=== PATIENT | female | born 1935 | race Caucasian/White ===

== ENCOUNTER 2016-08-27 11:26 | Emergency (ER) | payer MEDICARE, OTHER ==
[2016-08-27] MEDS ORDERED: Sodium Chloride 0.9% 10 ML Syringe FLUSH PRN (11:39)
[2016-08-27] MEDS ORDERED: Sodium Chloride 0.9% 1,000 ML IV SCH (11:45)
[2016-08-27 12:35] LABS: CHLORIDE,CL 98 mmol/L (98-107); SODIUM,NA 134 mmol/L (136-145)
--- NOTE | 2016-08-27 12:44 | EDM.PDOC ---
ED HISTORY OF PRESENT ILLNESS - General Chief Complaint: Respiratory Problem Stated Complaint: Productive cough Time Seen by Provider: 08/27/16 11:32 Source of Information: Reports: Patient, Family, RN, RN notes reviewed History Limitations: Reports: No limitations - History of Present Illness INITIAL COMMENTS - FREE TEXT/NARRATIVE: Patient presents to the ED at [facility] with a 3 day history of a productive cough. Patient state she is coughing up green/yellow appearing purulent sputum. No other URI symptoms. Patient states she had had some chills over the past couple of days. Symptom Onset Date: 08/24/16 Timing/Duration: Reports: Getting worse - Related Data Allergies/ADRs: Allergies Allergy/AdvReac Type Severity Reaction Status Date / Time No Known Allergies Allergy Verified 03/18/14 11:26 Home Meds: Home Meds Aspirin [[place] Aspirin] 1 tab PO DAILY 02/25/14 [History] Levothyroxine 1 tab PO DAILY 02/25/14 [History] Lisinopril [Prinivil] 1 tab PO DAILY 02/25/14 [History] diphenhydrAMINE HCl [Benadryl] 1 tab PO ASDIRECTED PRN 02/25/14 [History] Optic-Vites 1 tab PO Q7D 03/11/14 [History] Nitrofurantoin Macrocrystal [Macrodantin] 100 mg PO BID #12 capsule 08/27/16 [Rx ] Social & Family History - Tobacco Use Smoking Status *Q: Never Smoker - Alcohol Use Days Per Week of Alcohol Use: 0 - Recreational Drug Use Recreational Drug Use: No ED ROS GENERAL - Review of Systems Review Of Systems: See Below Constitutional: Reports: fever, chills, weakness HEENT: Denies: Rhinitis, Sinus problem, Throat pain Respiratory: Reports: Cough, Sputum. Denies: Shortness of Breath, Wheezing Cardiovascular: Denies: Chest pain, Palpitations Skin: Reports: no symptoms Neurological: Denies: Dizziness, Headache ED EXAM, GENERAL - Physical Exam Exam: See Below Exam Limited By: No limitations General Appearance: alert, no apparent distress Eye Exam: bilateral eye: EOMI, normal inspection, PERRL Ears: normal external exam, normal canal, hearing grossly normal, normal TMs Ear Exam: bilateral ear: TM normal Nose: normal inspection, normal mucosa Throat/Mouth: Normal inspection, Normal oropharynx Neck: supple Respiratory/Chest: no respiratory distress, rhonchi Cardiovascular: regular rate, rhythm Neurological: alert, oriented Skin Exam: Warm, Dry, Intact, Normal color, No rash Course - Vital Signs Last Recorded V/S: Last Vital Signs Temp 38.5 C H 08/27/16 11:33 Pulse 107 H 08/27/16 11:33 Resp 18 08/27/16 11:33 BP 146/82 H 08/27/16 11:33 Pulse Ox 92 L 08/27/16 11:33 - Orders/Labs/Meds Orders: Active Orders 24 hr Category Date Time Status Chest 2V [CR] Stat Exams 08/27/16 11:37 Taken CULTURE BLOOD [BC] Stat Lab 08/27/16 12:02 Received CULTURE BLOOD [BC] Stat Lab 08/27/16 12:09 Received Nitrofurantoin Hawkins/Macrocryst [Take Home: Nitrofur Med 08/27/16 13:45 Once Hawkins/Ma 100 MG, 2 Pack] 1 packet PO ONETIME ONE Sodium Chloride 0.9% [Normal Saline] 1,000 ml Med 08/27/16 11:45 Active IV ASDIRECTED Sodium Chloride 0.9% [Saline Flush] Med 08/27/16 11:39 Active 10 ml FLUSH ASDIRECTED PRN Blood Culture x2 Reflex Set [OM.PC] Stat Oth 08/27/16 11:38 Ordered Peripheral IV Insertion Adult [OM.PC] Routine Oth 08/27/16 11:39 Ordered Medication Orders Sodium Chloride (Normal Saline) 1,000 mls @ 30 mls/hr IV ASDIRECTED [facility] Last Admin: 08/27/16 12:36 Dose: 30 mls/hr Sodium Chloride (Saline Flush) 10 ml FLUSH ASDIRECTED PRN PRN Reason: Keep Vein Open Labs: Laboratory Tests 08/27/16 08/27/16 08/27/16 Range/Units 12:02 12:02 12:02 WBC 6.8 (4.0-10.0) x10^3/uL RBC 4.69 (4.00-5.50) x10^6/uL Hgb 14.2 (12.0-16.0) g/dL Hct 41.8 (33.0-47.0) % MCV 89.1 (78.0-93.0) fL MCH 30.3 (26.0-32.0) pg MCHC 34.0 (32.0-36.0) g/dL RDW Coeff of Kam 14.5 (10.0-15.0) % Plt Count 171 (130-400) x10^3/uL Neut % (Auto) 76.1 (50.0-80.0) % Lymph % (Auto) 12.2 L (25.0-50.0) % Hawkins % (Auto) 11.6 H (2.0-11.0) % Eos % (Auto) 0.0 (0.0-4.0) % Baso % (Auto) 0.1 L (0.2-1.2) % Sodium 134 L (136-145) mmol/L Potassium 3.9 (3.5-5.1) mmol/L Chloride 98 (98-107) mmol/L Carbon Dioxide 26 (21-32) mmol/L BUN 23 H (7-18) mg/dL Creatinine 1.0 (0.55-1.02) mg/dL Est Cr Clr Drug Dosing TNP Estimated GFR (MDRD) 53 Glucose 112 H (74-106) mg/dL Lactic Acid 1.2 (0.4-2.0) mmol/L Calcium 8.2 L (8.5-10.1) mg/dL Corrected Calcium 8.38 L (8.5-10.1) mg/dL Total Bilirubin 0.6 (0.2-1.0) mg/dL AST 40 H (15-37) U/L ALT 30 (14-59) U/L Alkaline Phosphatase 70 (46-116) U/L C-Reactive Protein 5.8 H (<=0.9) mg/dL Total Protein 6.9 (6.4-8.2) g/dL Albumin 3.4 (3.4-5.0) g/dL Globulin 3.5 Albumin/Globulin Ratio 0.97 Urine Color (YELLOW) Urine Appearance (CLEAR) Urine pH (5.0-8.0) Ur Specific [place] Urine Protein (NEGATIVE) mg/dL Urine Glucose (UA) (NEGATIVE) mg/dL Urine Ketones (NEGATIVE) mg/dL Urine Occult Blood (NEGATIVE) Urine Nitrite (NEGATIVE) Urine Bilirubin (NEGATIVE) Urine Urobilinogen (0.2) EU/dL Ur Leukocyte Esterase (NEGATIVE) Urine RBC (NOT SEEN) /HPF Urine WBC (NOT SEEN) /HPF Ur Squamous Epith Cells (NEGATIVE) /HPF Ur Renal Epithelial Cell (NEGATIVE) /HPF Amorphous Sediment Urine Bacteria (NEGATIVE) /HPF Hyaline Casts (NEGATIVE) /HPF Urine Mucus (NEGATIVE) /LPF 08/27/16 Range/Units 13:25 WBC (4.0-10.0) x10^3/uL RBC (4.00-5.50) x10^6/uL Hgb (12.0-16.0) g/dL Hct (33.0-47.0) % MCV (78.0-93.0) fL MCH (26.0-32.0) pg MCHC (32.0-36.0) g/dL RDW Coeff of Kam (10.0-15.0) % Plt Count (130-400) x10^3/uL Neut % (Auto) (50.0-80.0) % Lymph % (Auto) (25.0-50.0) % Hawkins % (Auto) (2.0-11.0) % Eos % (Auto) (0.0-4.0) % Baso % (Auto) (0.2-1.2) % Sodium (136-145) mmol/L Potassium (3.5-5.1) mmol/L Chloride (98-107) mmol/L Carbon Dioxide (21-32) mmol/L BUN (7-18) mg/dL Creatinine (0.55-1.02) mg/dL Est Cr Clr Drug Dosing Estimated GFR (MDRD) Glucose (74-106) mg/dL Lactic Acid (0.4-2.0) mmol/L Calcium (8.5-10.1) mg/dL Corrected Calcium (8.5-10.1) mg/dL Total Bilirubin (0.2-1.0) mg/dL AST (15-37) U/L ALT (14-59) U/L Alkaline Phosphatase (46-116) U/L C-Reactive Protein (<=0.9) mg/dL Total Protein (6.4-8.2) g/dL Albumin (3.4-5.0) g/dL Globulin Albumin/Globulin Ratio Urine Color Yellow (YELLOW) Urine Appearance Turbid H (CLEAR) Urine pH 5.5 (5.0-8.0) Ur Specific [place] 1.020 Urine Protein 100 H (NEGATIVE) mg/dL Urine Glucose (UA) Negative (NEGATIVE) mg/dL Urine Ketones Trace H (NEGATIVE) mg/dL Urine Occult Blood Moderate H (NEGATIVE) Urine Nitrite Positive H (NEGATIVE) Urine Bilirubin Negative (NEGATIVE) Urine Urobilinogen 0.2 (0.2) EU/dL Ur Leukocyte Esterase Small H (NEGATIVE) Urine RBC 0-5 (NOT SEEN) /HPF Urine WBC 10-20 H (NOT SEEN) /HPF Ur Squamous Epith Cells Moderate H (NEGATIVE) /HPF Ur Renal Epithelial Cell Occasional H (NEGATIVE) /HPF Amorphous Sediment Few Urine Bacteria Many H (NEGATIVE) /HPF Hyaline Casts Few H (NEGATIVE) /HPF Urine Mucus Few H (NEGATIVE) /LPF Meds: Medications Generic Name Dose Route Start Last Admin Trade Name Freq PRN Reason Stop Dose Admin Sodium Chloride 1,000 mls @ 30 mls/hr 08/27/16 11:45 08/27/16 12:36 Normal Saline IV 30 mls/hr ASDIRECTED ROQUE Administration Sodium Chloride 10 ml 08/27/16 11:39 Saline Flush FLUSH ASDIRECTED PRN Keep Vein Open Departure - Departure Time of Disposition: 13:42 Disposition: Home, Self-Care 01 Condition: good Clinical Impression: Urinary tract infection Qualifiers: Urinary tract infection type: acute cystitis Hematuria presence: with hematuria Qualified Code(s): N30.01 - Acute cystitis with hematuria Prescriptions: Nitrofurantoin Macrocrystal [Macrodantin] 100 mg PO BID #12 capsule Instructions: Urinary Tract Infection, Adult Referrals: Evie Burgos DO [Primary Care Provider] - Forms: ED Department Discharge Additional Instructions: 1. Stay well hydrated and rest 2. Take medication for the full coarse, even if you are feeling better 3. See your Primary as symptoms warrant - Problem List Review Problem List Initiated/Reviewed/Updated: Yes - My Orders Last 24 Hours: My Active Orders 08/27/16 11:37 Chest 2V [CR] Stat 08/27/16 11:38 Blood Culture x2 Reflex Set [OM.PC] Stat 08/27/16 11:39 Sodium Chloride 0.9% [Saline Flush] 10 ml FLUSH ASDIRECTED PRN Peripheral IV Insertion Adult [OM.PC] Routine 08/27/16 11:45 Sodium Chloride 0.9% [Normal Saline] 1,000 ml IV ASDIRECTED 08/27/16 12:02 CULTURE BLOOD [BC] Stat 08/27/16 12:09 CULTURE BLOOD [BC] Stat 08/27/16 13:45 Nitrofurantoin Hawkins/Macrocryst [Take Home: Nitrofur Hawkins/Ma 100 MG, 2 Pack] 1 packet PO ONETIME ONE - Assessment/Plan Last 24 Hours: My Active Orders 08/27/16 11:37 Chest 2V [CR] Stat 08/27/16 11:38 Blood Culture x2 Reflex Set [OM.PC] Stat 08/27/16 11:39 Sodium Chloride 0.9% [Saline Flush] 10 ml FLUSH ASDIRECTED PRN Peripheral IV Insertion Adult [OM.PC] Routine 08/27/16 11:45 Sodium Chloride 0.9% [Normal Saline] 1,000 ml IV ASDIRECTED 08/27/16 12:02 CULTURE BLOOD [BC] Stat 08/27/16 12:09 CULTURE BLOOD [BC] Stat 08/27/16 13:45 Nitrofurantoin Hawkins/Macrocryst [Take Home: Nitrofur Hawkins/Ma 100 MG, 2 Pack] 1 packet PO ONETIME ONE
[2016-08-27] MEDS ORDERED: Take Home: Nitrofurantoin Monohydrate/Macrocrystalline 100 MG, 2 Cap Pack PO ONE (13:45)
[2016-08-27 14:26] VITALS: BP 138/78
== END 2016-08-27 14:10 | disposition home or self-care (01) ==
LOC: VM.ED 11:26
DX: N30.01 Acute cystitis with hematuria (principal); Z79.82 Long term (current) use of aspirin; Z79.899 Other long term (current) drug therapy
CPT/HCPCS: 36415; 71020; 80053; 81001; 83605; 85025; 86140; 87040; 96360; 99284; A9270; J7030; 99283-GF

== ENCOUNTER 2016-08-31 19:56 | Inpatient (IN) | payer MEDICARE, OTHER ==
--- NOTE | 2016-08-31 20:10 | EDM.PDOC ---
ED HPI GENERAL MEDICAL PROBLEM - General Chief Complaint: General Stated Complaint: not improving, has UTI and Bronchitis Time Seen by Provider: 08/31/16 19:59 Source of Information: Reports: Patient, Family, RN, RN notes reviewed History Limitations: Reports: No limitations - History of Present Illness INITIAL COMMENTS - FREE TEXT/NARRATIVE: Patient presents to the emergency room at [facility] with increasing shortness of breath, increasing weakness, productive cough. The patient was seen by me in this ER 4 days ago, at which time she was diagnosed with a UTI. The patient was placed on Macrobid and discharged. The patient was seen the next day at the [facility] in [place]. The patient was diagnosed with acute bronchitis do to productive cough. M.D. provider at that time recommended she continue with the current antibiotics and she was also placed on codeine with guaifenesin. Since the patient's office visit last Sunday she has progressively gotten worse with her productive cough, new onset of weakness, decreased appetite, and shortness of breath. No focal neurological deficits. The patient denies any nausea vomiting or diarrhea. The patient has been taking her antibiotics as prescribed for her UTI. Onset Date: 08/28/16 Duration: Getting worse - Related Data Allergies Allergy/AdvReac Type Severity Reaction Status Date / Time No Known Allergies Allergy Verified 08/31/16 20:05 Home Meds: Home Meds Aspirin [[place] Aspirin] 1 tab PO DAILY 02/25/14 [History] Levothyroxine 1 tab PO DAILY 02/25/14 [History] Lisinopril [Prinivil] 1 tab PO DAILY 02/25/14 [History] Latanoprost [Xalatan 0.005% Ophth Soln] 2.5 ml EYERT BEDTIME 08/31/16 [History] Nitrofurantoin Macrocrystal [Macrodantin] 100 mg PO BID 08/31/16 [History] guaiFENesin/Codeine Phosphate [Guaifenesin AC Cough Syrup] 1 - 2 tsp PO Q4HR PRN 08/31/16 [History] Past Medical History Cardiovascular History: Reports: Hypertension Endocrine/Metabolic History: Reports: Hypothyroidism Social & Family History - Tobacco Use Smoking Status *Q: Never Smoker - Alcohol Use Days Per Week of Alcohol Use: 0 - Recreational Drug Use Recreational Drug Use: No ED ROS GENERAL - Review of Systems Review Of Systems: See Below Constitutional: Reports: fever, chills, weakness, decreased appetite HEENT: Reports: No symptoms Respiratory: Reports: Shortness of Breath, Cough, Sputum Cardiovascular: Denies: Chest pain, Palpitations GI/Abdominal: Denies: Abdominal pain, Nausea, Vomiting Skin: Reports: no symptoms Neurological: Reports: Dizziness. Denies: Headache, Numbness, Paresthesia, Tingling ED EXAM, GENERAL - Physical Exam Exam: See Below Exam Limited By: No limitations General Appearance: alert, no apparent distress, lethargic, cachetic Eye Exam: bilateral eye: EOMI, normal inspection, PERRL Ears: normal external exam, normal canal, hearing grossly normal, normal TMs Ear Exam: bilateral ear: TM normal Nose: normal inspection, normal mucosa Throat/Mouth: Normal inspection, Normal oropharynx, No airway compromise Neck: supple Respiratory/Chest: decreased breath sounds, rhonchi, accessory muscle use Cardiovascular: regular rate, rhythm Peripheral Pulses: 1+: radial (L), radial (R) GI/Abdominal: normal bowel sounds, soft, non tender Neurological: alert, slow to respond Skin Exam: Warm, Dry, Intact, Normal color, No rash Course - Vital Signs Last Recorded V/S: Last Vital Signs Temp 37.1 C 08/31/16 20:02 Pulse 103 H 08/31/16 20:02 Resp 18 08/31/16 20:02 BP 166/92 H 08/31/16 20:02 Pulse Ox 87 L 08/31/16 20:02 - Orders/Labs/Meds Orders: Active Orders 24 hr Category Date Time Status Admission Status [Patient Status] [ADT] Routine ADT 08/31/16 21:27 Ordered Oxygen Therapy, ED [RC] ASDIRECTED Care 08/31/16 20:46 Active Chest 2V [CR] Stat Exams 08/31/16 20:10 Taken Chest w Cont [CT] Stat Exams 08/31/16 21:16 Ordered CULTURE BLOOD [BC] Stat Lab 08/31/16 21:18 Ordered CULTURE BLOOD [BC] Stat Lab 08/31/16 21:18 Ordered INFLUENZA A+B AG SCREEN [RM] Stat Lab 08/31/16 21:18 Uncollected UA W/MICROSCOPIC [URIN] Stat Lab 08/31/16 20:10 Uncollected Sodium Chloride 0.9% [Normal Saline] 1,000 ml Med 08/31/16 20:15 Active IV ASDIRECTED Sodium Chloride 0.9% [Saline Flush] Med 08/31/16 20:11 Active 10 ml FLUSH ASDIRECTED PRN Blood Culture x2 Reflex Set [OM.PC] Stat Oth 08/31/16 21:18 Ordered Peripheral IV Insertion Adult [OM.PC] Routine Oth 08/31/16 20:11 Ordered Medication Orders Sodium Chloride (Normal Saline) 1,000 mls @ 999 mls/hr IV ASDIRECTED ROQUE Last Admin: 08/31/16 21:15 Dose: 999 mls/hr Sodium Chloride (Saline Flush) 10 ml FLUSH ASDIRECTED PRN PRN Reason: Keep Vein Open Labs: Laboratory Tests 08/31/16 08/31/16 08/31/16 Range/Units 20:26 20:26 20:26 WBC 6.2 (4.0-10.0) x10^3/uL RBC 4.66 (4.00-5.50) x10^6/uL Hgb 14.0 (12.0-16.0) g/dL Hct 40.7 (33.0-47.0) % MCV 87.3 (78.0-93.0) fL MCH 30.0 (26.0-32.0) pg MCHC 34.4 (32.0-36.0) g/dL RDW Coeff of Kam 13.7 (10.0-15.0) % Plt Count 258 (130-400) x10^3/uL Neut % (Auto) 71.8 (50.0-80.0) % Lymph % (Auto) 13.2 L (25.0-50.0) % [place] % (Auto) 15.0 H (2.0-11.0) % Eos % (Auto) 0.0 (0.0-4.0) % Baso % (Auto) 0.0 L (0.2-1.2) % D-Dimer, Quantitative (<=0.58) mg/LFEU POC ABG pH (7.35-7.45) POC ABG pCO2 (35-45) mmHG POC ABG pO2 (80-105) mmHG POC ABG HCO3 (22-26) mmol/L POC ABG Total CO2 (23-27) mmol/L POC ABG O2 Sat (95-98) % POC ABG Base Excess (-2-3) mmol/L POC FiO2 Sodium 128 L* (136-145) mmol/L Potassium 3.1 L (3.5-5.1) mmol/L Chloride 92 L (98-107) mmol/L Carbon Dioxide 28 (21-32) mmol/L BUN 7 (7-18) mg/dL Creatinine 0.8 (0.55-1.02) mg/dL Est Cr Clr Drug Dosing TNP Estimated GFR (MDRD) > 60 Glucose 183 H (74-106) mg/dL Lactic Acid 1.3 (0.4-2.0) mmol/L Calcium 8.1 L (8.5-10.1) mg/dL C-Reactive Protein 26.5 H (<=0.9) mg/dL POC Result Comm 08/31/16 08/31/16 Range/Units 20:26 20:37 WBC (4.0-10.0) x10^3/uL RBC (4.00-5.50) x10^6/uL Hgb (12.0-16.0) g/dL Hct (33.0-47.0) % MCV (78.0-93.0) fL MCH (26.0-32.0) pg MCHC (32.0-36.0) g/dL RDW Coeff of Kam (10.0-15.0) % Plt Count (130-400) x10^3/uL Neut % (Auto) (50.0-80.0) % Lymph % (Auto) (25.0-50.0) % [place] % (Auto) (2.0-11.0) % Eos % (Auto) (0.0-4.0) % Baso % (Auto) (0.2-1.2) % D-Dimer, Quantitative 3.45 H (<=0.58) mg/LFEU POC ABG pH 7.512 H (7.35-7.45) POC ABG pCO2 30 L (35-45) mmHG POC ABG pO2 50 L* (80-105) mmHG POC ABG HCO3 24 (22-26) mmol/L POC ABG Total CO2 25 (23-27) mmol/L POC ABG O2 Sat 89 L (95-98) % POC ABG Base Excess 1 (-2-3) mmol/L POC FiO2 0.21 Sodium (136-145) mmol/L Potassium (3.5-5.1) mmol/L Chloride (98-107) mmol/L Carbon Dioxide (21-32) mmol/L BUN (7-18) mg/dL Creatinine (0.55-1.02) mg/dL Est Cr Clr Drug Dosing Estimated GFR (MDRD) Glucose (74-106) mg/dL Lactic Acid (0.4-2.0) mmol/L Calcium (8.5-10.1) mg/dL C-Reactive Protein (<=0.9) mg/dL POC Result Comm Called critical res Meds: Medications Generic Name Dose Route Start Last Admin Trade Name Freq PRN Reason Stop Dose Admin Sodium Chloride 1,000 mls @ 999 mls/hr 08/31/16 20:15 08/31/16 21:15 Normal Saline IV 999 mls/hr ASDIRECTED ROQUE Administration Sodium Chloride 10 ml 08/31/16 20:11 Saline Flush FLUSH ASDIRECTED PRN Keep Vein Open Discontinued Medications Generic Name Dose Route Start Last Admin Trade Name Freq PRN Reason Stop Dose Admin Ceftriaxone Sodium 1 gm 08/31/16 21:19 Rocephin IVPUSH 08/31/16 21:20 ONETIME ONE - Radiology Interpretation Free Text/Narrative:: CXR: New bilateral infiltrates; heart size is normal; no vascular congestion Departure - Departure Time of Disposition: 21:25 Disposition: Admitted As Inpatient 66 Condition: fair Clinical Impression: Pulmonary infiltrates, Hyponatremia, Weakness, Hypoxia ED Communication - ED Communication Date/Time Date: 08/31/16 Time Called: 21:20 - Discussed Case With (1) Discussed Case With (1): Admitting Provider Person/s Notified (1): Cristy Tipton - Conversation Summary Admitting Provider Agreed to Patient's Admission: Yes Summary Comment: Admit acute - Problem List Review Problem List Initiated/Reviewed/Updated: Yes - My Orders Last 24 Hours: My Active Orders 08/31/16 20:10 Chest 2V [CR] Stat UA W/MICROSCOPIC [URIN] Stat 08/31/16 20:11 Sodium Chloride 0.9% [Saline Flush] 10 ml FLUSH ASDIRECTED PRN Peripheral IV Insertion Adult [OM.PC] Routine 08/31/16 20:15 Sodium Chloride 0.9% [Normal Saline] 1,000 ml IV ASDIRECTED 08/31/16 20:46 Oxygen Therapy, ED [RC] ASDIRECTED 08/31/16 21:16 Chest w Cont [CT] Stat 08/31/16 21:18 CULTURE BLOOD [BC] Stat CULTURE BLOOD [BC] Stat INFLUENZA A+B AG SCREEN [RM] Stat Blood Culture x2 Reflex Set [OM.PC] Stat 08/31/16 21:27 Admission Status [Patient Status] [ADT] Routine - Assessment/Plan Last 24 Hours: My Active Orders 08/31/16 20:10 Chest 2V [CR] Stat UA W/MICROSCOPIC [URIN] Stat 08/31/16 20:11 Sodium Chloride 0.9% [Saline Flush] 10 ml FLUSH ASDIRECTED PRN Peripheral IV Insertion Adult [OM.PC] Routine 08/31/16 20:15 Sodium Chloride 0.9% [Normal Saline] 1,000 ml IV ASDIRECTED 08/31/16 20:46 Oxygen Therapy, ED [RC] ASDIRECTED 08/31/16 21:16 Chest w Cont [CT] Stat 08/31/16 21:18 CULTURE BLOOD [BC] Stat CULTURE BLOOD [BC] Stat INFLUENZA A+B AG SCREEN [RM] Stat Blood Culture x2 Reflex Set [OM.PC] Stat 08/31/16 21:27 Admission Status [Patient Status] [ADT] Routine
[2016-08-31] MEDS ORDERED: Sodium Chloride 0.9% 10 ML Syringe FLUSH PRN (20:11)
[2016-08-31] MEDS ORDERED: Sodium Chloride 0.9% 1,000 ML IV SCH (20:15)
[2016-08-31 21:02] LABS: CHLORIDE,CL 92 mmol/L (98-107)
[2016-08-31 21:04] LABS: SODIUM,NA 128 mmol/L (136-145)
[2016-08-31] MEDS ORDERED: cefTRIAXone 1 GM Vial IVPUSH ONE (21:19)
--- NOTE | 2016-08-31 21:54 | PCM.HP ---
H&P History of Present Illness - General Date of Service: 08/31/16 Admit Problem/Dx: Admission Diagnosis/Problem Admission Diagnosis/Problem Interstitial pneumonia Source of Information: Patient History Limitations: Reports: No limitations - History of Present Illness Initial Comments - Free Text/Narative: Mrs. Ware is an 80 yo female with PMH of hypertension, hypothyroidism, and osteoarthritis who presented to the ED for evaluation of worsening cough and generalized weakness over the past 7 days. She was seen in the ED 5 days ago and was diagnosed with a UTI. She was placed on macrobid. The following day, she was seen in clinic for evaluation of the cough. Since her chest x-ray in the ED the day before was negative, it was recommended she continue with symptomatic cares. However, her cough has continued to progress. Her appetite has also been poor due to altered taste related to her antibiotics for the UTI. She has had intermittent subjective fever and chills throughout the week as well. She never had much in the way of URI symptoms. She has had no chest pain or shortness of breath. She denies any myalgias or sore throat. She has had sick contacts through her work at the [employer]. She has taken OTC medications and prescription cough syrup without relief in symptoms. - Related Data Allergies/Adverse Reactions: Allergies Allergy/AdvReac Type Severity Reaction Status Date / Time No Known Allergies Allergy Verified 08/31/16 20:05 Home Medications: Home Meds Aspirin [[place] Aspirin] 1 tab PO DAILY 02/25/14 [History] Levothyroxine 1 tab PO DAILY 02/25/14 [History] Lisinopril [Prinivil] 1 tab PO DAILY 02/25/14 [History] Latanoprost [Xalatan 0.005% Ophth Soln] 2.5 ml EYERT BEDTIME 08/31/16 [History] Nitrofurantoin Macrocrystal [Macrodantin] 100 mg PO BID 08/31/16 [History] guaiFENesin/Codeine Phosphate [Guaifenesin AC Cough Syrup] 1 - 2 tsp PO Q4HR PRN 08/31/16 [History] Past Medical History HEENT History: Reports: Cataract, Glaucoma Cardiovascular History: Reports: Hypertension Respiratory History: Reports: None Gastrointestinal History: Reports: Colon polyp Genitourinary History: Reports: None Musculoskeletal History: Reports: Osteoarthritis Neurological History: Reports: None Psychiatric History: Reports: None Endocrine/Metabolic History: Reports: Hypothyroidism Hematologic History: Reports: None Immunologic History: Reports: None Oncologic (Cancer) History: Reports: None Dermatologic History: Reports: None - Infectious Disease History Infectious Disease History: Reports: None - Past Surgical History HEENT Surgical History: Reports: Oral surgery Female Surgical History: Reports: Hysterectomy Social & Family History - Family History Cardiac: Reports: CAD Musculoskeletal: Reports: RA Neurological: Reports: Other (see below) (cerebral hemorrhage) Endocrine/Metabolic: Reports: Diabetes, type II Oncologic: Reports: Breast - Tobacco Use Smoking Status *Q: Never Smoker - Alcohol Use Alcohol Use History: No Days Per Week of Alcohol Use: 0 Alcohol Use in Last Twelve Months: Yes Alcohol Use Frequency: Rarely - Recreational Drug Use Recreational Drug Use: No - Living Situation & Occupation Living situation: Reports: , alone Occupation: employed (works at the [employer]) H&P Review of Systems - Review of Systems: Review Of Systems: See Below General: Reports: fever, chills, malaise, weakness, decreased appetite HEENT: Reports: no symptoms Pulmonary: Reports: Cough. Denies: Shortness of Breath, Wheezing, Pleuritic Chest Pain Cardiovascular: Reports: no symptoms Gastrointestinal: Reports: Anorexia. Denies: Abdominal pain, Diarrhea, Nausea, Vomiting Genitourinary: Reports: no symptoms Musculoskeletal: Reports: no symptoms Skin: Reports: no symptoms Psychiatric: Reports: no symptoms Neurological: Reports: No Symptoms Exam - Exam Exam: See Below - Vital Signs Vital Signs: Last Vital Signs Temp 37.1 C 08/31/16 20:02 Pulse 103 H 08/31/16 20:02 Resp 18 08/31/16 20:02 BP 166/92 H 08/31/16 20:02 Pulse Ox 87 L 08/31/16 20:02 - Exam General: alert, cooperative. No: mild distress, moderate distress, severe distress HEENT: Conjunctiva clear, Mucosa moist & pink, Posterior pharynx clear, Pupils equal, Pupils reactive Neck: supple, trachea midline. No: lymphadenopathy, thyromegaly Lungs: Normal respiratory effort, Crackles (diffuse and bilateral), Rhonchi ( diffuse and bilateral) Cardiovascular: regular rate, regular rhythm, normal S1, normal S2. No: systolic murmur, diastolic murmur Abdomen: normal bowel sounds, soft. No: distention, tenderness Extremities: normal inspection, normal pulses. No: edema Skin: warm, dry, intact Neurological: cranial nerves intact, normal speech. No: focal deficit - Patient Data Result Diagrams: 08/31/16 20:26 08/31/16 20:26 *Q Meaningful Use (ADM) - VTE *Q VTE Criteria *Q: - Stroke *Q Stroke Criteria *Q: - AMI *Q AMI Criteria *Q: - Problem List (1) Community acquired pneumonia SNOMED Code(s): 580132025 ICD Code: J18.9 - PNEUMONIA, UNSPECIFIED ORGANISM Status: Acute Current Visit: Yes Problem Details: - Symptoms, exam, and CXR findings are all consistent with CAP. Her WBC count is normal but her CRP is significantly elevated. - In the absence of recent antibiotic use or other risk factors, will treat with ceftriaxone and azithromycin. - Patient does not meet sepsis criteria at this point. Therefore, in the setting of her hyponatremia, we will give gentle IV hydration overnight and bolus only as needed for low blood pressures. - Blood cultures are pending. - Oxygen to keep saturations >90%. Will wean as able. (2) Hypoxia SNOMED Code(s): 809866795, 436366503 ICD Code: R09.02 - HYPOXEMIA Status: Acute Current Visit: Yes Problem Details: - Likely secondary to #1. - Differentials considered and excluded include: CHF (no evidence on exam or by CXR), ACS (absolutely no symptoms concerning for this), influenza (swab was negative), and PE (did have an elevated d-dimer but CTA negative). Patient has no history of asthma or COPD. - Will treat pneumonia as above. - Oxygen to keep saturations >90%. Wean as able. (3) Weakness SNOMED Code(s): 95958448 ICD Code: R53.1 - WEAKNESS Status: Acute Current Visit: Yes Problem Details: - Likely secondary to pneumonia and hyponatremia. - Will observe for improvement with treatment and correction of these, respectively. - Depending on how she does, she may need PT/OT consults for possible swing bed stay. (4) Hyponatremia SNOMED Code(s): 11459976 ICD Code: E87.1 - HYPO-OSMOLALITY AND HYPONATREMIA Status: Acute Current Visit: Yes Problem Details: - Presume this is acute based on her history; also , her last sodium on 08/27 was nearly normal at 134. - Likely secondary to pneumonia causing dehydration vs. SIADH. No evidence this is pseudohyponatremia. - She will get gentle IV fluids overnight to complete the liter started in the ED and then we will recheck her labs in the morning. This fluid rate is highly unlikely to overcorrect too quickly. (5) Hypertension SNOMED Code(s): 04440387 ICD Code: I10 - ESSENTIAL (PRIMARY) HYPERTENSION Status: Chronic Current Visit: Yes Problem Details: - BP elevated on admission. - In the absence of symptoms, will not specifically treat this. - Continue lisinopril and aspirin. Qualifiers: Hypertension type: essential hypertension Qualified Code(s): I10 - Essential (primary) hypertension (6) Hypothyroidism SNOMED Code(s): 90448841 ICD Code: E03.9 - HYPOTHYROIDISM, UNSPECIFIED Status: Chronic Current Visit: Yes Problem Details: - Continue levothyroxine. Qualifiers: Hypothyroidism type: acquired Qualified Code(s): E03.9 - Hypothyroidism, unspecified (7) Urinary tract infection SNOMED Code(s): 29844319 ICD Code: N39.0 - URINARY TRACT INFECTION, SITE NOT SPECIFIED Status: Acute Current Visit: No Problem Details: - Patient likely does not need to complete macrobid course as her UTI should be covered with the ceftriaxone used to treat her pneumonia. Qualifiers: Urinary tract infection type: acute cystitis Hematuria presence: with hematuria Qualified Code(s): N30.01 - Acute cystitis with hematuria (8) Glaucoma SNOMED Code(s): 30448977 ICD Code: H40.9 - UNSPECIFIED GLAUCOMA Status: Acute Current Visit: Yes Problem Details: - Continue eye drops. Qualifiers: Glaucoma type: open-angle Open angle glaucoma type: primary Laterality: unspecified laterality Glaucoma stage: stage unspecified Qualified Code(s): H40.1190 - Primary open-angle glaucoma, unspecified eye, stage unspecified Problem List Initiated/Reviewed/Updated: Yes Orders Last 24hrs: Medication Orders Sodium Chloride (Normal Saline) 1,000 mls @ 999 mls/hr IV ASDIRECTED ROQUE Last Admin: 08/31/16 21:15 Dose: 999 mls/hr Sodium Chloride (Saline Flush) 10 ml FLUSH ASDIRECTED PRN PRN Reason: Keep Vein Open Assessment/Plan Comment:: 80 yo female presenting with progressive cough and generalized weakness. Evaluation suggests community acquired pneumonia and hyponatremia as the causes for this. Please see details under problems listed above. She will be treated with ceftriaxone and azithromycin. Gentle IV fluids overnight. Recheck labs in the morning. She will be placed on lovenox for VTE prophylaxis. She will be admitted acute as she will require IV antibiotics, oxygen, and will likely spend at least 2 nights in the hospital. She wishes to be full code.
[2016-08-31] MEDS ORDERED: Iopamidol 612 MG/ML 100 ML Bottle IVPUSH ONE (21:55)
[2016-08-31] MEDS ORDERED: Sodium Chloride 0.9% 100 ML IV ONE (21:55)
[2016-08-31] MEDS ORDERED: Acetaminophen 325 MG Tab PO PRN (22:13)
[2016-08-31] MEDS ORDERED: Azithromycin 250 MG Tab PO SCH (22:45)
[2016-08-31] MEDS: Latanoprost 0.005% Ophth Soln 2.5 ML Bottle EYERT SCH (23:46)
[2016-08-31] MEDS: Timolol Maleate 0.5% Ophth Soln 5 ML Bottle EYERT SCH (23:47)
[2016-09-01] MEDS: Levothyroxine 75 MCG Tab PO SCH (06:14)
[2016-09-01 07:17] LABS: CHLORIDE,CL 99 mmol/L (98-107); SODIUM,NA 134 mmol/L (136-145)
[2016-09-01] MEDS ORDERED: Azithromycin 250 MG Tab PO SCH ×2 (08:00→18:00)
[2016-09-01] MEDS ORDERED: NS + KCl 20mEq/L 1,000 ML IV SCH (08:15)
[2016-09-01] MEDS: Albuterol 0.083% 2.5 MG/3 ML Neb Soln NEB SCH ×3 (08:30→19:47)
[2016-09-01] MEDS ORDERED: Albuterol 0.083% 2.5 MG/3 ML Neb Soln ONE (08:30)
--- NOTE | 2016-09-01 08:45 | PN ---
Progress Note for YOGESH PECK Date: 09/01/2016 Room #: VM.219 SUBJECTIVE: This is hospital day #2 on an 80-year-old admitted last evening with community-acquired pneumonia, worse in the left lower lobe. She has been sick since last week. She came in the ER 6 days ago, was diagnosed with the UTI, placed on Macrobid. She also had a cough, was in the clinic Sunday, diagnosed with bronchitis, but her symptoms continued to worsen throughout the week. She has had fever and chills, persistent cough. She has no history of smoking or asthma. She was mildly hypoxic with sats down to 87% on room air on admission. She was also weak and had a low sodium at 128 on admission. She is otherwise healthy. A she was still working. She sees her doctor, myself about once yearly for hypertension. OBJECTIVE: Vital Signs: She has a temperature of 97.1 this morning. Pulse 89, blood pressure 154/92, respiratory rate 20, O2 of 90 on 2 L. General: She is in no acute distress. Heart: Regular rate and rhythm. S1, S2 without murmur. Lungs: Sounds show diffuse rhonchi throughout with more rhonchi noted in the left lower lobe. She has wheezing, fine expiratory noted. Mental Status: She is alert. Her eyes do have some green discharge noted. She is concerned about not having her eye drops yet this morning. LABORATORY DATA: Lab work did show her sodium improved to 134, potassium still low at 3.1, chloride 99, bicarb 26, BUN 7, creatinine 0.7, glucose 139. Her lactate was normal, magnesium 1.7. UA was normal. PO2 was 50. White count was 7.6, but she had 31% band neutrophils today, hemoglobin 12.7, platelets 264. ASSESSMENT: 1. Community-acquired pneumonia to the left lower lobe. Blood cultures are pending. Sputum cultures have been ordered. We will continue her Rocephin IV and include Zithromax, but I will increase it up to the 500 mg daily for 5 days. 2. Acute hypoxic respiratory failure secondary to community-acquired pneumonia. We will continue oxygen and wean as able. 3. Generalized weakness. We will get her up and working with PT. 4. Hyponatremia due to pneumonia and dehydration, improving. 5. Hypothyroidism, on replacement. 6. Urinary tract infection, treated with Macrobid. 7. Glaucoma. We will work on getting her eye drops and giving them to her today. 8. Hypokalemia and hypomagnesemia. We will replace IV and orally. Repeat tomorrow for the potassium. PLAN: At this point, the patient will continue IV fluids, normal saline with 20 of KCl. We will continue IV Rocephin and oral Zithromax. I will continue oxygen. We will start nebulizers and Mucinex to see if it helps with her cough. If she is having difficulty with sleeping, we will consider even codeine cough syrup. For DVT prophylaxis, she is on Lovenox. MKA: 09/01/2016 08:20:45 MODL: 09/01/2016 08:34:24 /[id number]
[2016-09-01] MEDS: Lisinopril 10 MG Tab PO SCH (08:54)
[2016-09-01] MEDS: Aspirin 81 MG Tab.EC PO SCH (08:54)
[2016-09-01] MEDS: Enoxaparin 40 MG/0.4 ML Syringe SUBCUT SCH (08:55)
[2016-09-01] MEDS: guaiFENesin 600 MG Tab.ER PO SCH ×2 (09:11→19:41)
[2016-09-01] MEDS: Potassium Chloride 10 MEQ Tab.ER PO SCH ×2 (09:11→17:16)
[2016-09-01] MEDS: Magnesium Oxide 400 MG Tab PO SCH ×2 (09:11→19:41)
[2016-09-01] MEDS: Timolol Maleate 0.5% Ophth Soln 5 ML Bottle EYERT SCH ×2 (09:57→19:42)
[2016-09-01] MEDS: Azithromycin 250 MG Tab PO SCH (17:17)
[2016-09-01] MEDS: Latanoprost 0.005% Ophth Soln 2.5 ML Bottle EYERT SCH (19:47)
[2016-09-01] MEDS: cefTRIAXone 1 GM Vial IVPUSH SCH (20:08)
[2016-09-02] MEDS: Levothyroxine 75 MCG Tab PO SCH (07:13)
[2016-09-02] MEDS: Albuterol 0.083% 2.5 MG/3 ML Neb Soln NEB SCH ×3 (07:21→21:19)
[2016-09-02 08:32] LABS: CHLORIDE,CL 103 mmol/L (98-107); SODIUM,NA 136 mmol/L (136-145)
[2016-09-02] MEDS: Aspirin 81 MG Tab.EC PO SCH (09:14)
[2016-09-02] MEDS: Lisinopril 10 MG Tab PO SCH (09:14)
[2016-09-02] MEDS: Codeine/guaiFENesin 100-10 MG/5 ML Syrup 5 ML Cup PO PRN ×2 (09:16→22:03)
[2016-09-02] MEDS: guaiFENesin 600 MG Tab.ER PO SCH ×2 (09:16→21:03)
[2016-09-02] MEDS: Enoxaparin 40 MG/0.4 ML Syringe SUBCUT SCH (09:16)
[2016-09-02] MEDS: Magnesium Oxide 400 MG Tab PO SCH ×2 (09:16→21:02)
[2016-09-02] MEDS: Potassium Chloride 10 MEQ Tab.ER PO SCH (09:18)
[2016-09-02] MEDS: Timolol Maleate 0.5% Ophth Soln 5 ML Bottle EYERT SCH ×2 (09:53→21:04)
[2016-09-02] MEDS: Fluticasone Propionate Nasal Spray 16 GM Bottle NASBOTH SCH (09:54)
--- NOTE | 2016-09-02 11:25 | PN ---
Progress Note for YOGESH PECK Date: 09/02/2016 Room #: VM.219 SUBJECTIVE: This is hospital day #3 on an 80-year-old admitted with community- acquired pneumonia. She had been treated for a UTI with Macrobid previously. She has had continued cough with sputum culture pending. She is not short of breath. She has been having 3 loose stools now over night, she has not had any chest pain or abdominal pain. She did not get any sleep due to her cough. Otherwise, she has had of mattering of her eyes. They do itch. She has also had some trouble hearing which her daughter mentioned to me after I visited with her. She has been afebrile. She has been on IV fluids, but she is eating fairly well. OBJECTIVE: Vital Signs: Temperature is 97.6, pulse 84, blood pressure 146/89, respiratory rate 20, and O2 of 93% on room air. General: She is in no acute distress. She is quite sleepy. She nearly falls asleep during questioning, but is always easily awakened. Heart: Regular rate and rhythm without murmur. Lungs: Sounds show decreased entry in both bases without crackles or wheezes. She has some rhonchi more prominent over the left base. Abdomen: Has positive bowel sounds. Soft and nontender. Extremities: Warm and dry. No edema. Eyes: Examined. There is no brightness of the sclera. There is some fine mattery material they had wiped it off, per family report. Ears: Left canal examined dried blood noted with a left middle ear effusion, right canal no blood noted and her right TM was normal LABORATORY DATA: Lab work reviewed today does show her to have a white count of 12, hemoglobin 13.3, and platelets 371. Sodium 136, potassium 3.9, chloride 103, bicarb 24, BUN 7, creatinine 0.7, glucose 110, and calcium 8.5. ASSESSMENT: 1. Community acquired pneumonia to the left lower lobe. Sputum cultures pending. We will continue IV Rocephin and oral Zithromax. 2. Acute hypoxic respiratory failure, secondary to community-acquired pneumonia, improving. She has been weaned off oxygen. We will get some incentive spirometry started. 3. Continued cough and insomnia. We will get some Ativan ordered to help with sleep. We will get some codeine cough syrup ordered as well. She will continue on nebulizers. 4. Generalized weakness. She was up and working with PT yesterday. 5. Hyponatremia, due to pneumonia resolved. 6. Hypokalemia, resolved. 7. Hypothyroidism, on replacement. 8. Urinary tract infection, treated with Macrobid. 9. Glaucoma, she is on her home drops. 10.Eye irritation, probably due to allergies. 11.Hearing loss. I did suspect this could be from some congestion and significant coughing. We will get her started on Flonase. PLAN: We will stop her IV fluids. We will continue IV Rocephin and Zithromax. We will start some codeine cough syrup and p.r.n. Ativan to help with sleep. We will get incentive spirometry going. We will get Flonase going. I think ultimately, she has mainly just exhausted. I had told her that we were working on things, but obviously the cough is going to be there for some time. We will also monitor the diarrhea closely. I think these loose stools are product to be expected from her second course antibiotics now, but if they increase we will send off testing for C. diff. For DVT prophylaxis, she is on Lovenox. We will repeat lab work in the morning. MACEYA: 09/02/2016 08:55:05 MODL: 09/02/2016 11:18:26 /[id number] MTDKailyn
[2016-09-02] MEDS: Dextran 70/Hypromellose/PF Ophth Soln 0.9 ML UD EYEBOTH SCH ×2 (12:07→22:06)
[2016-09-02] MEDS: Azithromycin 250 MG Tab PO SCH (17:52)
[2016-09-02] MEDS: amLODIPine 2.5 MG Tab PO SCH (18:21)
[2016-09-02] MEDS: LORazepam 0.5 MG Tab PO PRN (21:03)
[2016-09-02] MEDS: Latanoprost 0.005% Ophth Soln 2.5 ML Bottle EYERT SCH (21:04)
[2016-09-02] MEDS: cefTRIAXone 1 GM Vial IVPUSH SCH (21:12)
[2016-09-03] MEDS: Levothyroxine 75 MCG Tab PO SCH ×2 (06:40→06:41)
[2016-09-03] MEDS: Albuterol 0.083% 2.5 MG/3 ML Neb Soln NEB SCH ×3 (07:03→19:06)
[2016-09-03] MEDS: Dextran 70/Hypromellose/PF Ophth Soln 0.9 ML UD EYEBOTH SCH ×3 (08:22→20:58)
[2016-09-03] MEDS: Potassium Chloride 10 MEQ Tab.ER PO SCH (08:22)
[2016-09-03] MEDS: amLODIPine 2.5 MG Tab PO SCH (08:22)
[2016-09-03] MEDS: Magnesium Oxide 400 MG Tab PO SCH ×2 (08:22→19:52)
[2016-09-03] MEDS: guaiFENesin 600 MG Tab.ER PO SCH ×2 (08:23→19:53)
[2016-09-03] MEDS: Lisinopril 10 MG Tab PO SCH (08:23)
[2016-09-03] MEDS: Enoxaparin 40 MG/0.4 ML Syringe SUBCUT SCH (08:23)
[2016-09-03] MEDS: Aspirin 81 MG Tab.EC PO SCH (08:23)
[2016-09-03] MEDS: Timolol Maleate 0.5% Ophth Soln 5 ML Bottle EYERT SCH ×2 (08:24→19:53)
[2016-09-03] MEDS: Fluticasone Propionate Nasal Spray 16 GM Bottle NASBOTH SCH (08:24)
[2016-09-03 08:27] LABS: CHLORIDE,CL 104 mmol/L (98-107); SODIUM,NA 138 mmol/L (136-145)
[2016-09-03] MEDS: Cefuroxime 250 MG Tab PO SCH ×2 (09:12→19:53)
[2016-09-03] MEDS: amLODIPine 5 MG Tab PO SCH (11:18)
--- NOTE | 2016-09-03 16:44 | PN ---
DATE: 09/03/2016 HISTORY OF PRESENT ILLNESS: This is an 80-year-old admitted to acute care, now hospital day #4 for community-acquired bilateral pneumonia. The patient finally had a good night sleep last night. She took some cough medicine as well as a lorazepam. She still is coughing quite a bit but denies shortness of breath. She has been afebrile. Her blood pressures are running higher, but she denies headache. She does have a known history of hypertension. She was given a dose of Norvasc yesterday. PHYSICAL EXAMINATION: Vital Signs: Her temperature is 97.4, pulse 87, blood pressure 172/85, respiratory rate 16, and O2 of 96% on room air. General: She is in no acute distress. Heart: Regular rate and rhythm. Lungs: Sounds did clear to auscultation after she did some coughing, there was no wheezing. Abdomen: Positive bowel sounds. Soft and nontender. Extremities: Warm and dry. No edema. Mental Status: She is alert. She is orientated x2. She was thinking the date today was Sunday instead of Sunday, but otherwise she is doing well. LABORATORY DATA: Lab work today does show her to have a white count of 11, hemoglobin 13.5, and platelets 407. Sodium 138, potassium 3.8, chloride 104, bicarb 26, BUN 7, and creatinine 0.8. ASSESSMENT: 1. Community-acquired pneumonia bilateral with sputum cultures showing normal respiratory adore. 2. Acute hypoxic respiratory failure secondary to community-acquired pneumonia, improving. 3. Essential hypertension with poor control. Norvasc will be increased to 5 mg today. 4. Insomnia, resolved with lorazepam. She does not feel that she will need any of these at home and that she might have some cough syrup at home also. 5. Generalized weakness. She has been up and walking in the halls with family. 6. Hypokalemia, resolved. 7. Hyponatremia due to pneumonia, resolved. 8. Hypothyroidism, on treatment. 9. Previous urinary tract infection, treated with Macrobid. 10.Glaucoma, on home eye drops. 11.Hearing loss. The patient feels this is improving. She was started on Flonase. PLAN: At this point, the patient is off IV fluids. She is off IV Rocephin. We gave her a dose of Ceftin this morning which she tolerated. She has 1 more day of Zithromax tomorrow. We will see how she does during the day. If blood pressure comes down and she is up moving around and feeling good, I think she will be stable to go home with family. We will check back later this afternoon for DVT prophylaxis during her stay. She has been on the Lovenox. MKA: 09/03/2016 12:25:35 MODL: 09/03/2016 16:37:15 /[id number] MTDKailyn
[2016-09-03] MEDS: Azithromycin 250 MG Tab PO SCH (17:17)
[2016-09-03] MEDS: LORazepam 0.5 MG Tab PO PRN (20:55)
[2016-09-03] MEDS: Codeine/guaiFENesin 100-10 MG/5 ML Syrup 5 ML Cup PO PRN (20:55)
[2016-09-03] MEDS: Latanoprost 0.005% Ophth Soln 2.5 ML Bottle EYERT SCH (20:58)
[2016-09-04] MEDS: Levothyroxine 75 MCG Tab PO SCH (06:05)
[2016-09-04] MEDS: Albuterol 0.083% 2.5 MG/3 ML Neb Soln NEB SCH (07:00)
[2016-09-04] MEDS: Magnesium Oxide 400 MG Tab PO SCH (08:27)
[2016-09-04] MEDS: Potassium Chloride 10 MEQ Tab.ER PO SCH (08:27)
[2016-09-04] MEDS: Cefuroxime 250 MG Tab PO SCH (08:27)
[2016-09-04] MEDS: Lisinopril 10 MG Tab PO SCH (08:27)
[2016-09-04] MEDS: Aspirin 81 MG Tab.EC PO SCH (08:27)
[2016-09-04] MEDS: Enoxaparin 40 MG/0.4 ML Syringe SUBCUT SCH (08:28)
[2016-09-04] MEDS: amLODIPine 5 MG Tab PO SCH (08:28)
[2016-09-04] MEDS: Timolol Maleate 0.5% Ophth Soln 5 ML Bottle EYERT SCH (08:34)
[2016-09-04 08:35] VITALS: BP 156/88
[2016-09-04] MEDS: Dextran 70/Hypromellose/PF Ophth Soln 0.9 ML UD EYEBOTH SCH (08:35)
[2016-09-04] MEDS: guaiFENesin 600 MG Tab.ER PO SCH (09:07)
--- NOTE | 2016-09-05 08:12 | DISCH ---
PRIMARY DISCHARGE DIAGNOSES: 1. Bilateral community-acquired pneumonia with CT scan negative for pulmonary embolism. 2. Acute hypoxic respiratory failure secondary to community-acquired pneumonia resolved. 3. Hyponatremia due to pneumonia resolved. 4. Cough and insomnia due to pneumonia improved with Ativan and cough medicine. 5. Generalized weakness, she was seen by PT. They did not feel she needed a swing bed stay. 6. Hypokalemia replaced orally probably due to poor oral intake from illness. 7. Hypothyroidism. 8. Recent urinary tract infection treated with Macrobid, repeat UA negative. 9. Chronic glaucoma. 10.Known history of essential hypertension, with poorly controlled blood pressures during her stay. 11.Started on Norvasc with improved readings down to 156/88 on discharge. 12.Loose stools probably due to antibiotics with a better more formed stool prior to discharge. 13.Hearing loss possibly due to sinus congestion with a left middle ear effusion improving on discharge with Flonase. REASON FOR ADMISSION: On the date of admission, this 80-year-old female, who had recently been in for weakness and a UTI was not improving. She had a cough that was worsening. She returned to the ER. She had an x-ray, was found to have bilateral pneumonia. Her D-dimer was positive. They did do a CT which was negative for pulmonary embolism. She had blood and sputum cultures that were all negative. She had influenza testing that was negative. She was started on IV Rocephin and oral Zithromax which she tolerated, but she continued to have cough. She was able to be weaned off oxygen. Her breathing improved. Eventually, she was transitioned on 09/03 from IV Rocephin to oral Ceftin and did complete her Zithromax dosing on 09/04. Even before changing antibiotics, she was having loose stools, maybe 3-4 per day, but just small amounts. She did have 1 incontinent stool during the night prior to discharge stating she just could not get there on time. Otherwise, she denied abdominal pain. No chest pain and improved cough on discharge. PHYSICAL EXAMINATION: Vital signs: Discharge vitals, temperature 97.9, pulse 93, blood pressure 156/88, respiratory rate 20, O2 of 93% on room air. General: She is in no acute distress. Heart: Regular rate and rhythm. S1, S2 without murmur. Lungs: Sounds are clear to auscultation bilaterally without crackles or wheezes. Abdomen: Positive bowel sounds. Soft and nontender. Extremities: Warm and dry. No edema. Mental Status: She is alert and orientated x3. On the day prior to discharge, she had some confusion related to her pills which 1 she was taking in the morning or at night and also she thought the day was Sunday and it was Sunday, but overall she was improved by discharge. DISCHARGE PLANS/INSTRUCTIONS: She will follow up in the clinic with Dr. Burgos on 09/12 for post hospital followup. No lab work will be due as her lab showed white count improved down to 11 on 09/03 and potassium 3.8, creatinine normal and sodium 138 on 09/03, otherwise she will be taking Norvasc which is a new medication for her 5 mg daily for blood pressure. She will take Ceftin 250 b.i.d. x5 more doses. She will be on Mucinex as needed for coughing, Flonase to continue till she runs out or to continue if needed for allergies and congestion. She will be under Home Health, if diarrhea continues, we can consider C. diff sampling. ADDENDUM FOR HOME HEALTH: The patient was seen by me [email or web address] on 09/04. She requires nursing and PT at home for assistance in teaching blood pressure monitoring and diarrhea that is related to medications. She has new medications of Norvasc, will need blood pressure monitoring for that. She is still weak and needing some assistance and family will be with her at home as well. She will require the assistance of another to get outpatient appointments due to her weakness, therefore she is considered homebound. I will periodically review the plan of care. I anticipate she will not need home health for more than a few days to a week. MKA: 09/04/2016 12:49:14 MODL: 09/05/2016 00:09:11 /[id number]
== END 2016-09-04 09:45 | disposition home health service (06) | DRG 193 ==
LOC: VM.ED 19:56 → VM.MS 21:27
PROVIDERS: ADMIT Family Medicine; ATTEND Internal Medicine
DX: R91.8 Other nonspecific abnormal finding of lung field (principal); J18.9 Pneumonia, unspecified organism; R53.1 Weakness; R09.02 Hypoxemia; J96.01 Acute respiratory failure with hypoxia; E87.1 Hypo-osmolality and hyponatremia; N30.01 Acute cystitis with hematuria; G47.00 Insomnia, unspecified; E87.6 Hypokalemia; E03.9 Hypothyroidism, unspecified; H40.9 Unspecified glaucoma; I10 Essential (primary) hypertension; R19.7 Diarrhea, unspecified; R09.81 Nasal congestion; M19.90 Unspecified osteoarthritis, unspecified site; H91.90 Unspecified hearing loss, unspecified ear
CPT/HCPCS: 36415; 36600; 71020; 80048; 82803; 83605; 85025; 85379; 86140; 96360; 99285; J7030; 71275; 81001; 83735; 87040; 87070; 87205; 87804; 94640; 94640-76; 94760; 97161-GP; 99284-GF; A9270-GY; J0696; J1650; J3480; J7050; J7620-GY; Q9967

== ENCOUNTER 2024-11-28 08:48 | Emergency (ER) | payer MEDICARE, OTHER ==
[2024-11-28 09:09] VITALS: PULSE 89
[2024-11-28 10:28] LABS: BASOPHILS ABSOLUTE AUTO 0.0 x10^3/uL (0.0-0.2); BASOPHILS PERCENT AUTO 0.3 % (0.2-1.2); EOSINOPHILS ABSOLUTE AUTO 0.0 x10^3/uL (0.0-0.5); EOSINOPHILS PERCENT AUTO 0.4 % (0.0-4.0); IMMATURE GRAN ABSOLUTE AUTO 0.01 x10^3/uL (0.00-0.07); IMMATURE GRAN PERCENT AUTO 0.10 % (0.00-0.43); LYMPHOCYTES ABSOLUTE AUTO 1.0 x10^3/uL (1.0-4.8); LYMPHOCYTES PERCENT AUTO 14.6 % (25.0-50.0); MONOCYTES ABSOLUTE AUTO 0.5 x10^3/uL (0.0-0.8); MONOCYTES PERCENT AUTO 6.8 % (2.0-11.0); NEUTROPHILS ABSOLUTE AUTO 5.4 x10^3/uL (1.8-7.7); NEUTROPHILS PERCENT AUTO 77.8 % (50.0-80.0); PLATELET COUNT,PLT 205 x10^3/uL (130-400); RED BLOOD CELL COUNT 4.99 x10^6/uL (4.00-5.50); WHITE BLOOD CELL COUNT,WBC 6.9 x10^3/uL (4.0-10.0)
[2024-11-28 10:49] VITALS: BP 144/89
== END 2024-11-28 10:51 | disposition home or self-care (01) ==
LOC: VM.ED 08:48
DX: R04.0 Epistaxis (principal); E03.9 Hypothyroidism, unspecified; E11.9 Type 2 diabetes mellitus without complications; I10 Essential (primary) hypertension; Z79.82 Long term (current) use of aspirin; Z79.890 Hormone replacement therapy
CPT/HCPCS: 36415; 85025; 99284; A9270-GY